=== PATIENT | male | born 1980 ===

== ENCOUNTER 2018-04-04 08:09 | Day surgery (SDC) | payer OTHER ==
[~2018-04-04] VITALS: Ht 182.9 cm; Wt 126.3 kg
[~2018-04-04 08:09] MED LIST: ALBU90OI; ALBU90OI INH; ALBU90OI61; DICLO GEL1 EACH TOP; HEARTBURN RELI150 M1 PO; Omeprazole20 M1; Omeprazole20 M1 PO; RANI150EL; TIOT18; TIOT18 INH; ZYCLARA1 EACH
== END 2018-04-04 09:30 | disposition home or self-care (01) ==
LOC: ORSCSDS 08:09
PROVIDERS: Internal Medicine Gastroenterology
PROC: 0DB68ZX Excision of Stomach, Via Natural or Artificial Opening Endoscopic, Diagnostic (ICD-10-PCS; principal; 2018-04-04 09:15)
DX: K21.9 Gastro-esophageal reflux disease without esophagitis (principal); K31.9 Disease of stomach and duodenum, unspecified; F17.220 Nicotine dependence, chewing tobacco, uncomplicated; G47.33 Obstructive sleep apnea (adult) (pediatric); J45.909 Unspecified asthma, uncomplicated; E66.9 Obesity, unspecified; Z68.37 Body mass index [BMI] 37.0-37.9, adult; Z79.899 Other long term (current) drug therapy
CPT/HCPCS: 88305; 88342; J2250; J7120